=== PATIENT | female | born 2000 | race American Indian/Alaskan Native ===

== ENCOUNTER 2019-04-17 19:06 | Emergency (ER) | payer SELFPAY ==
[2019-04-17 19:13] VITALS: BP 130/80
--- NOTE | 2019-04-17 19:41 | Emergency Department Report ---
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 left breast exam: normal, no lesions, no lumps, no nipple retraction, no nipple discharge, no skin changes, no increased warmth right breast exam: 1 cm freely moveable lump present directly underneath the areola, no fluctuance, no increased warmth, no erythema, no nipple retraction, no nipple drainage, no skin changes No signs of mastitis or abscess lump is freely movable could be related to fibroadenoma will refer pt to an RN HEMO DIALYSIS for further evaluation pt is presenting with a non medical emergency at this time, medical screening examination performed advised pt to please follow up with an RN HEMO DIALYSIS in the next 2-3 days for reexamination. return to the emergency room for any new or worsening symptoms. - Exam Vital Signs: Vital Signs 04/17/19 19:12 Temperature 98.1 F Pulse Rate 100 H Respiratory 16 Rate Blood Pressure 130/80 O2 Sat by Pulse 94 Oximetry MSE screening note: Focused history and physical exam performed. ED Disposition for MSE Clinical Impression: Lump of breast, right Disposition: Z-07 MED SCREENING EXAM-LEFT Is pt being admited?: No Does the pt Need Aspirin: No Condition: Stable Additional Instructions: please follow up with an RN HEMO DIALYSIS in the next 2-3 days for reexamination. return to the emergency room for any new or worsening symptoms. Referrals: [facility] [Outside] - 2-3 Days [facility] [Outside] - 2-3 Days Time of Disposition: 19:41 Print Language: TRINIDADIAN
== END 2019-04-17 20:00 | disposition left against medical advice (07) ==
LOC: ED 19:06
DX: N63.10 Unspecified lump in the right breast, unspecified quadrant (principal)